=== PATIENT | female | born 1960 | race Native Hawaiian/Other Pacific Islander ===

== ENCOUNTER 2019-05-27 13:10 | Outpatient (CLI) | payer OTHER | END 2019-05-27 19:27 | disposition home or self-care (01) | LOC: CT 13:10 | DX: Z87.891 Personal history of nicotine dependence (principal) | CPT/HCPCS: G0297-TC ==

== ENCOUNTER 2020-06-11 10:55 | Outpatient (CLI) | payer OTHER | END 2020-06-11 19:24 | disposition home or self-care (01) | LOC: CT 10:55 | PROVIDERS: ATTEND Internal Medicine Sleep Medicine | DX: Z87.891 Personal history of nicotine dependence (principal) | CPT/HCPCS: G0297-TC ==

== ENCOUNTER 2021-11-01 12:47 | Outpatient (CLI) | payer BC | END 2021-11-01 20:15 | disposition home or self-care (01) | LOC: CT 12:47 | PROVIDERS: ATTEND Nurse Practitioner Family | DX: Z87.891 Personal history of nicotine dependence (principal) ==

== ENCOUNTER 2023-05-10 13:26 | Outpatient (CLI) | payer OTHER | END 2023-05-10 19:32 | disposition home or self-care (01) | LOC: CT 13:26 | PROVIDERS: ATTEND Internal Medicine Sleep Medicine | DX: Z87.891 Personal history of nicotine dependence (principal) ==